=== PATIENT | male | born 1985 | race Hispanic/Latino ===

== ENCOUNTER 2018-09-21 09:20 | Emergency (ER) | payer SELFPAY ==
--- NOTE | 2018-09-21 10:22 | ER ---
Nurse's Notes [facility] Name: Yousif Gordon Age: 32 yrs Sex: Male : 1985 Arrival Date: 09/21/2018 Time: 09:23 Bed 15 Private MD: None, None Diagnosis: Acute upper respiratory infection, unspecified Presentation: 09/21 09:25 Presenting complaint: Patient states: cough, nasal congestion, back and chest pain, sv chills since Friday. Transition of care: patient was not received from another setting of care. Onset of symptoms was September 18, 2018. Risk Assessment: Do you want to hurt yourself or someone else? Patient reports no desire to harm self or others. Initial Sepsis Screen: Does the patient meet any 2 criteria? No. Patient's initial sepsis screen is negative. Does the patient have a suspected source of infection? No. Patient's initial sepsis screen is negative. Care prior to arrival: None. 09:25 Method Of Arrival: Ambulatory sv 09:25 Acuity: SURYA 4 sv Triage Assessment: :25 General: Appears in no apparent distress. uncomfortable, Behavior is calm, cooperative, sv appropriate for age. General: Reports chills for 1-2 days. Pain: Complains of pain in "body" Pain currently is 8 out of 10 on a pain scale. EENT: Reports nasal congestion. Neuro: Level of Consciousness is awake, alert, obeys commands, Oriented to person, place, time, situation, Moves all extremities. Full function Gait is steady. Respiratory: Reports cough that is pain with cough Respiratory effort is even, unlabored, Respiratory pattern is regular, symmetrical. Historical: - Allergies: 09:35 No Known Allergies; sv - Home Meds: 09:35 None [Active]; sv - PMHx: 09:35 None; sv - PSHx: 09:35 None; sv - Immunization history:: Adult Immunizations up to date, Hepatitis A vaccine is not up to date. - Social history:: Smoking status: Patient uses tobacco products, denies chronic smoking, but will smoke occasionally, Patient/guardian denies using alcohol. - Ebola Screening: : No symptoms or risks identified at this time. Screenin:30 Abuse screen: Denies threats or abuse. Denies injuries from another. Nutritional sg screening: No deficits noted. Tuberculosis screening: No symptoms or risk factors identified. Fall Risk None identified. Assessment: 09:36 General: Appears in no apparent distress. comfortable, slender, well groomed, well sg developed, well nourished, Behavior is calm, cooperative, appropriate for age. Pain: Complains of pain in sore throat and chest pain that is worsened by cough and deep breathing. Neuro: No deficits noted. Cardiovascular: Capillary refill is brisk in bilateral fingers Patient's skin is warm and dry. Respiratory: Airway is patent Respiratory effort is even, unlabored, Respiratory pattern is regular, symmetrical. GI: Abdomen is round non-distended. : No signs and/or symptoms were reported regarding the genitourinary system. EENT: No signs and/or symptoms were reported regarding the EENT system. Derm: Skin is pink, warm \\T\\ dry. Musculoskeletal: Reports body aches. Vital Signs: 09:35 BP 149 / 94; Pulse 80; Resp 18; Temp 98.6; Pulse Ox 96% ; Weight 72.57 kg; Height 5 ft. sv 9 in. (175.26 cm); Pain 8/10; 09:35 Body Mass Index 23.63 (72.57 kg, 175.26 cm) sv ED Course: 09:23 Patient arrived in ED. sb2 09:23 None, None is Private Physician. sb2 09:24 Anjana Mata FNP-C is [facility]. kb 09:24 Crescencio Griffin MD is Attending Physician. kb 09:32 Phani Dockery, RN is Primary Nurse. sg 09:34 Triage completed. sv 09:35 Arm band placed on Patient placed in an exam room. sv 09:39 No provider procedures requiring assistance completed. Flu and/or RSV swab sent to lab. sg Strep swab sent to lab. 09:40 Patient has correct armband on for positive identification. Bed in low position. Call sg light in reach. Side rails up X2. Pulse ox on. NIBP on. 10:25 Patient did not have IV access during this emergency room visit. intact, bleeding sg controlled, No redness/swelling at site. Pressure dressing applied. Administered Medications: No medications were administered Outcome: 10:21 Discharge ordered by . kb 10:25 Discharged to home ambulatory, with family. sg 10:25 Condition: good 10:25 Discharge instructions given to patient, Instructed on discharge instructions, follow up and referral plans. safety practices, Demonstrated understanding of instructions, follow-up care. 10:30 Patient left the ED. bd Signatures: Anjana Mata, HUNG-Annika RETAIL SHIFT LEADER-Ofelia Scott Stephanie, RN RN sv Phani Dockery RN RN sg Annabel Wilhelm sb2 Corrections: (The following items were deleted from the chart) 09/22 09:35 09/21 10:25 Discharge instructions given to patient, Instructed on discharge sg instructions, follow up and referral plans. safety practices, Demonstrated understanding of instructions, follow-up care, medications, Prescriptions given X 1, sg
--- NOTE | 2018-09-21 10:22 | EDPHYS ---
Physician Documentation [facility] Name: Yousif Gordon Age: 32 yrs Sex: Male : 1985 Arrival Date: 09/21/2018 Time: 09:23 Bed 15 Private MD: None, None ED Physician Crescencio Griffin HPI: 09/21 09:46 This 32 yrs old Male presents to ER via Ambulatory with complaints of Flu kb Symptoms. 09:46 The patient or guardian reports cough, that is intermittent, described as moderate, kb with no sputum, flu symptoms, low-grade fever, myalgias. Onset: The symptoms/episode began/occurred 3 day(s) ago. Severity of symptoms: At their worst the symptoms were moderate, in the emergency department the symptoms are unchanged. Modifying factors: The symptoms are alleviated by nothing, the symptoms are aggravated by nothing. Associated signs and symptoms: Pertinent positives: fever, rhinorrhea, sore throat, Pertinent negatives: chest pain, diarrhea, ear ache, nausea, vomiting. The patient has not experienced similar symptoms in the past. The patient has not recently seen a physician. Historical: - Allergies: 09:35 No Known Allergies; sv - Home Meds: 09:35 None [Active]; sv - PMHx: 09:35 None; sv - PSHx: 09:35 None; sv - Immunization history:: Adult Immunizations up to date, Hepatitis A vaccine is not up to date. - Social history:: Smoking status: Patient uses tobacco products, denies chronic smoking, but will smoke occasionally, Patient/guardian denies using alcohol. - Ebola Screening: : No symptoms or risks identified at this time. ROS: 09:46 Cardiovascular: Negative for chest pain, palpitations, and edema, Abdomen/GI: Negative kb for abdominal pain, nausea, vomiting, diarrhea, and constipation, Back: Negative for injury and pain, MS/Extremity: Negative for injury and deformity, Skin: Negative for injury, rash, and discoloration, Neuro: Negative for headache, weakness, numbness, tingling, and seizure. 09:46 Constitutional: Positive for body aches, chills, fever, Negative for fatigue, malaise, poor PO intake, weight loss. 09:46 ENT: Positive for rhinorrhea, sinus congestion, sore throat. 09:46 Respiratory: Positive for cough, Negative for dyspnea on exertion, hemoptysis, orthopnea, pleurisy, shortness of breath, sputum production, wheezing. Exam: 09:47 Constitutional: This is a well developed, well nourished patient who is awake, alert, kb and in no acute distress. Head/Face: Normocephalic, atraumatic. Chest/axilla: Normal chest wall appearance and motion. Nontender with no deformity. No lesions are appreciated. Cardiovascular: Regular rate and rhythm with a normal S1 and S2. No gallops, murmurs, or rubs. Normal PMI, no JVD. No pulse deficits. Respiratory: Lungs have equal breath sounds bilaterally, clear to auscultation and percussion. No rales, rhonchi or wheezes noted. No increased work of breathing, no retractions or nasal flaring. Abdomen/GI: Soft, non-tender, with normal bowel sounds. No distension or tympany. No guarding or rebound. No evidence of tenderness throughout. Skin: Warm, dry with normal turgor. Normal color with no rashes, no lesions, and no evidence of cellulitis. MS/ Extremity: Pulses equal, no cyanosis. Neurovascular intact. Full, normal range of motion. Neuro: Awake and alert, GCS 15, oriented to person, place, time, and situation. Cranial nerves II-XII grossly intact. Motor strength 5/5 in all extremities. Sensory grossly intact. Cerebellar exam normal. Normal gait. 09:47 ENT: External ear(s): are unremarkable, Ear canal(s): are normal, TM's: are normal, Nose: is normal, Posterior pharynx: Airway: normal, no evidence of obstruction, Tonsils: with erythema, Uvula: normal, midline, erythema, that is mild. Vital Signs: 09:35 BP 149 / 94; Pulse 80; Resp 18; Temp 98.6; Pulse Ox 96% ; Weight 72.57 kg; Height 5 ft. sv 9 in. (175.26 cm); Pain 8/10; 09:35 Body Mass Index 23.63 (72.57 kg, 175.26 cm) sv MDM: 09:25 Patient medically screened. kb 09:47 Data reviewed: vital signs, nurses notes. Data interpreted: Pulse oximetry: on room air kb is 98 %. Interpretation: normal. 10:16 Counseling: I had a detailed discussion with the patient and/or guardian regarding: the kb historical points, exam findings, and any diagnostic results supporting the discharge/admit diagnosis, lab results, the need for outpatient follow up, a family practitioner, to return to the emergency department if symptoms worsen or persist or if there are any questions or concerns that arise at home. 09/21 09:29 Order name: Flu; Complete Time: 10:07 kb 09/21 09:29 Order name: Strep; Complete Time: 10:05 kb 09/21 10:07 Order name: Throat Culture EDMS Administered Medications: No medications were administered Disposition: 18:51 Co-signature as Attending Physician, Crescencio Griffin MD available for consultation at ps1 all times. . Disposition: 09/21/18 10:21 Discharged to Home. Impression: Acute upper respiratory infection, unspecified. - Condition is Stable. - Discharge Instructions: Upper Respiratory Infection, Adult, [id number]. - Work release form, Medication Reconciliation Form, Thank You Letter, Antibiotic Education, Prescription Opioid Use form. - Follow up: Emergency Department; When: As needed; Reason: Worsening of condition. Follow up: Private Physician; When: 2 - 3 days; Reason: Recheck today's complaints, Continuance of care, Re-evaluation by your physician. Signatures: Dispatcher [employer] Anjana Pedersen, KIARA PERSAUD-Ofelia Scott Stephanie, RN RN sv Singer, Phillip, MD MD ps1 Corrections: (The following items were deleted from the chart) 10:30 10:21 09/21/2018 10:21 Discharged to Home. Impression: Acute upper respiratory bd infection, unspecified. Condition is Stable. Forms are Medication Reconciliation Form, Thank You Letter, Antibiotic Education, Prescription Opioid Use. Follow up: Emergency Department; When: As needed; Reason: Worsening of condition. Follow up: Private Physician; When: 2 - 3 days; Reason: Recheck today's complaints, Continuance of care, Re-evaluation by your physician. kb
== END 2018-09-21 10:30 | disposition home or self-care (01) ==
LOC: ER 09:20
DX: J06.9 Acute upper respiratory infection, unspecified (principal); Z72.0 Tobacco use
CPT/HCPCS: 87070; 87081; 87804; 99283

== ENCOUNTER 2024-05-19 19:45 | Emergency (ER) | payer SELFPAY ==
--- OUTSIDE RECORDS SUMMARY | 2024-05-19 19:48 | XMS REPORT | Continuity of Care Document ---
Author Name Unknown Address [address] [facility] [address] [id number] [facility]connect Address [address] [facility]. [address] [place] [address] Care Team Providers Care Plant Technician Name Role Phone Unavailable Unavailable Unavailable Encounters Start Date/Time End Date/Time Encounter Type Admission Type Attending [facility] Care Facility Care Department Encounter ID Source 2023-06-04 08:33:41 2023-06-04 08:33:41 Outpatient SFA S[facility] [id number] Tigre Humberto Arik 2023-02-26 08:08:47 2023-02-26 08:08:47 Outpatient SFA SFA [id number] Tigre Humberto Arik 2023-01-08 08:40:47 2023-01-08 08:40:47 Outpatient SFA SFA [id number] Tigre Elise 2022-12-04 09:21:35 2022-12-04 09:21:35 Outpatient SFA SFA [id number] Tigre Elise 2022-11-12 15:57:37 2022-11-12 15:57:37 Outpatient SFA SFA [id number] Tigre Elise
--- NOTE | 2024-05-19 20:29 | ER ---
Nurse's Notes [facility] Name: Yousif Gordon Age: 38 yrs Sex: Male : 1985 Arrival Date: 05/19/2024 Time: 19:45 Bed IW4 Private MD: Diagnosis: Acute pansinusitis Presentation: 05/19 20:26 Chief complaint: Patient states: Pt c/o headache and nasal drainage x 6 weeks. No tl4 relief with OTC meds. Coronavirus screen: headache, runny nose. Ebola Screen: No symptoms or risks identified at this time. Initial Sepsis Screen: Does the patient meet any 2 criteria? No. Patient's initial sepsis screen is negative. Does the patient have a suspected source of infection? No. Patient's initial sepsis screen is negative. Risk Assessment: Do you want to hurt yourself or someone else? Patient reports no desire to harm self or others. Onset of symptoms was April 10, 2024. 20:26 Method Of Arrival: Ambulatory tl4 20:26 Acuity: SURYA 4 tl4 Triage Assessment: 20:28 Headache History: The patient has had previous headaches and this one is similar to tl4 previous episodes. General: Appears uncomfortable, Behavior is calm, cooperative. Pain: Complains of pain in face and scalp Pain currently is 3 out of 10 on a pain scale. Pain began gradually, 6 weeks ago. Pain: Also complains of no other associated symptoms. EENT: Reports nasal congestion. Neuro: Level of Consciousness is awake, alert, obeys commands, Oriented to person, place, time, situation, Moves all extremities. Full function Gait is steady, Speech is normal, Reports headache. Cardiovascular: Capillary refill < 3 seconds Patient's skin is warm and dry. Respiratory: Airway is patent Respiratory effort is even, unlabored, Respiratory pattern is regular, symmetrical. GI: No signs and/or symptoms were reported involving the gastrointestinal system. : No signs and/or symptoms were reported regarding the genitourinary system. Derm: No signs and/or symptoms reported regarding the dermatologic system. Musculoskeletal: No signs and/or symptoms reported regarding the musculoskeletal system. Historical: - Allergies: 20:28 No Known Allergies; tl4 - Home Meds: 20:28 None [Active]; tl4 - PMHx: 20:28 None; tl4 - PSHx: 20:28 None; tl4 - Immunization history:: Adult Immunizations unknown. - Infectious Disease History:: Denies. - Social history:: Smoking status: Reported history of juuling and/or vaping. - Family history:: not pertinent. Screenin:58 [facility] ED Fall Risk Assessment (Adult) History of falling in the last 3 months, bm8 including since admission No falls in past 3 months (0 pts) Confusion or Disorientation No (0 pts) Intoxicated or Sedated No (0 pts) Impaired Gait No (0 pts) Mobility Assist Device Used No (0 pt) Altered Elimination No (0 pt) Score/Fall Risk Level 0 - 2 = Low Risk Oriented to surroundings, Maintained a safe environment, Educated pt \T\ family on fall prevention, incl call for assistance when getting out of bed, Hourly rounding (assess needs \T\ fall precautionary measures) done. Abuse screen: Denies threats or abuse. Nutritional screening: No deficits noted. Tuberculosis screening: No symptoms or risk factors identified. Assessment: 20:58 General: Appears in no apparent distress. comfortable, Behavior is calm, cooperative, bm8 appropriate for age. Pain: Complains of pain in face. Neuro: No deficits noted. Level of Consciousness is awake, alert, obeys commands, Oriented to person, place, time, situation. Cardiovascular: No deficits noted. Capillary refill < 3 seconds Patient's skin is warm and dry. Respiratory: Airway is patent Respiratory effort is even, unlabored, Respiratory pattern is regular, symmetrical. EENT: Nares with drainage noted bilaterally. Vital Signs: 20:26 BP 134 / 76; Pulse 86; Resp 16; Temp 97.2(TE); Pulse Ox 97% on R/A; Weight 71.67 kg; tl4 Height 5 ft. 9 in. ; Pain 3/10; 20:58 BP 128 / 70; Pulse 81; Resp 17; Temp 97.2; Pulse Ox 97% ; Pain 3/10; bm8 20:26 Body Mass Index 23.33 (71.67 kg, 175.26 cm) tl4 20:26 Pain Scale: Adult tl4 20:58 Pain Scale: Adult bm8 Kelly Coma Score: 20:42 Eye Response: spontaneous(4). Motor Response: obeys commands(6). Verbal Response: sp4 oriented(5). Total: 15. 20:58 Eye Response: spontaneous(4). Motor Response: obeys commands(6). Verbal Response: bm8 oriented(5). Total: 15. ED Course: 20:01 Patient arrived in ED. gm2 20:17 Ernie Luke MD is Attending Physician. sp4 20:28 Triage completed. tl4 20:28 Immanuel Rodriguez DO is Referral Physician. sp4 20:29 Arm band placed on right wrist. tl4 20:57 William Rincon, RN is Primary Nurse. bm8 20:58 Patient has correct armband on for positive identification. Provided Education on: post bm8 er care. Client placed on continuous cardiac and pulse oximetry monitoring. NIBP monitoring applied. Pulse ox on. NIBP on. Verbal reassurance given. 20:58 No provider procedures requiring assistance completed. Patient did not have IV access bm8 during this emergency room visit. Administered Medications: 20:57 Drug: Rocephin (cefTRIAXone) IM 1 grams IM once Route: IM; Site: right gluteus; bm8 21:01 Follow up: Response: No adverse reaction bm8 Medication: 20:58 VIS not applicable for this client. bm8 Outcome: 20:29 Discharge ordered by . sp4 20:58 Discharged to home ambulatory, bm8 20:58 Condition: stable 20:58 Discharge instructions given to patient, Instructed on discharge instructions, follow up and referral plans. no drinking with medication, no driving heavy equipment, medication usage, safety practices, Demonstrated understanding of instructions, follow-up care, medications, Prescriptions given X 1, 21:02 Patient left the ED. bm8 Signatures: Ernie Luke MD MD sp4 Amelie Graham 2 Mohit Wilcox RN RN tl4 William Rincon, RN RN bm8
--- NOTE | 2024-05-19 20:29 | EDPHYS ---
Physician Documentation [facility] Name: Yousif Gordon Age: 38 yrs Sex: Male : 1985 Arrival Date: 05/19/2024 Time: 19:45 Bed IW4 Private MD: ED Physician Ernie Luke HPI: 05/19 20:17 This 38 yrs old Male presents to ER via Unassigned with complaints of Nasal sp4 Drainage, Headache. 20:42 This is 38-year-old male presents with over 1 month of nasal drainage congestion and sp4 yellow purulent nasal drainage. Historical: - Allergies: 20:28 No Known Allergies; tl4 - Home Meds: 20:28 None [Active]; tl4 - PMHx: 20:28 None; tl4 - PSHx: 20:28 None; tl4 - Immunization history:: Adult Immunizations unknown. - Infectious Disease History:: Denies. - Social history:: Smoking status: Reported history of juuling and/or vaping. - Family history:: not pertinent. ROS: 20:42 Constitutional: Negative for fever, chills, and weight loss, positive congestion and sp4 nasal drainage positive sinus pressure 20:42 All other systems are negative, Exam: 20:42 Constitutional: This is a well developed, well nourished patient who is awake, alert, sp4 and in no acute distress. Head/Face: Normocephalic, atraumatic. Eyes: Pupils equal round and reactive to light, extra-ocular motions intact. Lids and lashes normal. Conjunctiva and sclera are not injected. Cornea within normal limits. Periorbital areas with no swelling, redness, or edema. ENT: Nares patent. No nasal discharge, no septal abnormalities noted. Tympanic membranes are normal and external auditory canals are clear. Oropharynx with no redness, swelling, or masses, exudates, or evidence of obstruction, uvula midline. Mucous membranes moist. Neck: Trachea midline, no thyromegaly or masses palpated, and no cervical lymphadenopathy. Supple, full range of motion without nuchal rigidity, or vertebral point tenderness. Chest/axilla: Normal chest wall appearance and motion. Nontender with no deformity. No lesions are appreciated. Cardiovascular: Regular rate and rhythm with a normal S1 and S2. No gallops, murmurs, or rubs. Normal PMI, no JVD. No pulse deficits. Respiratory: Lungs have equal breath sounds bilaterally, clear to auscultation and percussion. No rales, rhonchi or wheezes noted. No increased work of breathing, no retractions or nasal flaring. Abdomen/GI: Soft, with normal bowel sounds. No distension or tympany. No guarding or rebound. No evidence of tenderness throughout. Back: No spinal tenderness. No costovertebral tenderness. Skin: Warm, dry with normal turgor. Normal color with no rashes, no lesions, and no evidence of cellulitis. MS/ Extremity: Pulses equal, no cyanosis. Neurovascular intact. Full, normal range of motion. Neuro: Awake and alert, GCS 15, oriented to person, place, time, and situation. Cranial nerves II-XII grossly intact. Motor strength 5/5 in all extremities. Sensory grossly intact. Psych: Awake, alert, with orientation to person, place and time. Behavior, mood, and affect are within normal limits Vital Signs: 20:26 BP 134 / 76; Pulse 86; Resp 16; Temp 97.2(TE); Pulse Ox 97% on R/A; Weight 71.67 kg; tl4 Height 5 ft. 9 in. ; Pain 3/10; 20:58 BP 128 / 70; Pulse 81; Resp 17; Temp 97.2; Pulse Ox 97% ; Pain 3/10; bm8 20:26 Body Mass Index 23.33 (71.67 kg, 175.26 cm) tl4 20:26 Pain Scale: Adult tl4 20:58 Pain Scale: Adult bm8 Kelly Coma Score: 20:42 Eye Response: spontaneous(4). Motor Response: obeys commands(6). Verbal Response: sp4 oriented(5). Total: 15. 20:58 Eye Response: spontaneous(4). Motor Response: obeys commands(6). Verbal Response: bm8 oriented(5). Total: 15. MDM: 20:19 Patient medically screened. sp4 20:42 Differential Diagnosis: Bronchitis Influenza Upper Respiratory Infection Sinusitis sp4 Pharyngitis. Data reviewed: vital signs, nurses notes. ED course: Patient will be provided a 10-day course of cephalexin for acute bacterial sinusitis associated with purulent rhinitis.. Administered Medications: 20:57 Drug: Rocephin (cefTRIAXone) IM 1 grams IM once Route: IM; Site: right gluteus; bm8 21:01 Follow up: Response: No adverse reaction bm8 Disposition Summary: 05/19/24 20:29 Discharge Ordered Notes: Location: Home sp4 Problem: new sp4 Symptoms: have improved sp4 Condition: Stable sp4 Diagnosis - Acute pansinusitis sp4 Followup: sp4 - With: Immanuel Rodriguez DO - When: 7 - 10 days - Reason: Recheck today's complaints Discharge Instructions: - Discharge Summary Sheet sp4 - Sinusitis, Adult, [id number] sp4 Forms: - Patient Portal Instructions sp4 Prescriptions: - Cephalexin 500 mg Oral Capsule - take 1 capsule ORAL route every 12 hours for 10 days; 20 capsule; Refills: 0, sp4 Product Selection Permitted Signatures: Dispatcher [employer] Ernie Pollock MD MD sp4 Mohit Wilcox RN RN tl4 William Rincon RN RN bm8
[2024-05-19] MEDS ORDERED: LIDOCAINE 1% MPF 2 ML AMPULE ONE (20:51)
[2024-05-19] MEDS ORDERED: CEFTRIAXONE 1000 MG/VIAL ONE (20:51)
[2024-05-20 02:29] VITALS: BP 128/70; TEMP 97.2; O2SAT 97
== END 2024-05-19 21:02 | disposition home or self-care (01) ==
LOC: ER 19:45
DX: J01.40 Acute pansinusitis, unspecified (principal)
CPT/HCPCS: 96372; 99284; J0696

== ENCOUNTER 2024-10-31 09:50 | Emergency (ER) | payer OTHER, SELFPAY ==
--- OUTSIDE RECORDS SUMMARY | 2024-10-31 09:53 | XMS REPORT | Continuity of Care Document ---
Author Name Unknown Address [address] [place] [address] [facility]. [address] [id number] [facility] Address [address] [facility]. [address] [place] [address] Care Team Providers Care Pan Puller Name Role Phone TAMERA DALEY Attending Clinician STEF Camacho Attending Clinician Maciej flores Payers Payer Name Policy Type Policy Number Effective Date Expirati on Date Source [facility] FOCUS 9 [id number] 2024 00:00:00 Encounters Start Date/Time End Date/Time Encounter Type Admission Type Attending Clinicians Care Facility Care Department Encounter ID Source 2024-07-14 15:30:00 2024-07-14 15:30:00 Outpatient TAMERA DALEY [id number] Lorie Rivas 2024-07-14 09:30:00 2024-07-14 09:30:00 Outpatient TAMERA DALEY [id number] Lorie Rivas 2024-07-14 09:30:00 2024-07-14 09:30:00 Outpatient TAMERA DALEY [id number] Lorie Rivas 2024-06-30 11:15:00 2024-06-30 11:15:00 Outpatient STEF BALDERAS [id number] Lorie Rivas 2023-06-04 08:33:41 2023-06-04 08:33:41 Outpatient SFA SFA [id number] 0726 Tigre Humberto Arik 2023-02-26 08:08:47 2023-02-26 08:08:47 Outpatient SFA SFA [id number] [id number] Tigre Elise 2023-01-08 08:40:47 2023-01-08 08:40:47 Outpatient SFA SFA [id number] Tigre Elise 2022-12-04 09:21:35 2022-12-04 09:21:35 Outpatient SFA SFA [id number] Tigre Elise 2022-11-12 15:57:37 2022-11-12 15:57:37 Outpatient SFA SFA 3 Tigre Elise
[2024-10-31] MEDS ORDERED: IBUPROFEN 200 MG TAB PO ONE (10:09)
--- NOTE | 2024-10-31 11:12 | EDPHYS ---
Physician Documentation [facility] Name: Yousif Gordon Age: 38 yrs Sex: Male : 1985 Arrival Date: 10/31/2024 Time: 09:50 Bed 17 Private MD: ED Physician Rojelio Whitaker HPI: 10/31 10:13 This 38 yrs old Male presents to ER via Ambulatory with complaints of Anxiety. sb4 10:13 38 year old male with history of bipolar, depression, and anxiety presents with mild sb4 chest pain secondary to anxiety. he states that he stopped taking his psych meds about 8 months ago and he has not been sleeping well so his anxiety/chest pains have recurred. he told his boss at work today to see if he could leave early and his boss made him come to the ED to be evaluated. patient states the pain is mild, does not radiate, is not associated with any dizziness, sob, nausea. Historical: - Allergies: 10:05 No Known Allergies; iw - Home Meds: 10:05 None [Active]; iw - PMHx: 10:05 Anxiety; iw - PSHx: 10:05 None; iw - Immunization history:: Adult Immunizations not up to date. - Infectious Disease History:: Denies. - Social history:: Smoking status: Reported history of juuling and/or vaping. ROS: 10:16 Constitutional: Negative for fever, chills, and weight loss, sb4 10:16 Psych: Positive for anxiety, 10:16 All other systems are negative, Exam: 10:16 Head/Face: Normocephalic, atraumatic. Eyes: Extra-ocular motions intact. Periorbital sb4 areas with no swelling, redness, or edema. ENT: Mucous membranes moist. Cardiovascular: Regular rate and rhythm with a normal S1 and S2. Respiratory: No increased work of breathing, no retractions or nasal flaring. Abdomen/GI: Soft, non-tender, no distension. Skin: Warm, dry with normal turgor. Normal color with no rashes, no lesions, and no evidence of cellulitis. 10:16 Constitutional: The patient appears in no acute distress, alert, awake, anxious, 10:16 Psych: Behavior/mood is pleasant, cooperative, anxious, Affect is calm, Oriented to person, place, time, Patient has no thoughts/intents to harm self or others. Judgement / Insight is normal. Memory is normal. Delusions/hallucinations are not present. Vital Signs: 10:03 BP 150 / 95; Pulse 75; Resp 16; Temp 97.4; Pulse Ox 99% on R/A; Weight 71.21 kg; Height iw 5 ft. 9 in. ; Pain 4/10; 10:03 Body Mass Index 23.18 (71.21 kg, 175.26 cm) iw 10:03 Pain Scale: Adult iw MDM: 10:06 Medical Screening Exam initiated sb4 10:20 Data reviewed: vital signs, nurses notes, and as a result, I will discharge patient. sb4 Test considered but Not performed: Labs: troponin. Other Details EKG. Administered Medications: 10:16 Drug: Ibuprofen PO 600 mg PO once Route: PO; ap3 11:13 Follow up: Response: No adverse reaction bp Disposition Summary: 10/31/24 11:11 Discharge Ordered Notes: Location: Home sb4 Problem: an acute exacerbation sb4 Symptoms: have improved sb4 Condition: Stable sb4 Diagnosis - Anxiety disorder, unspecified sb4 Followup: sb4 - With: Evaristo Rowley MD - When: 2 - 3 days - Reason: Recheck today's complaints, Continuance of care, Re-evaluation by your physician Discharge Instructions: - Discharge Summary Sheet sb4 - Managing Anxiety, Adult sb4 Forms: - Work release form ap3 - Patient Portal Instructions sb4 - Leadership Thank You Letter sb4 Addendum: 11/04/2024 12:45 Co-signature as Attending Physician, Rojelio Whitaker MD I agree with the assessment and c santos plan of care. Signatures: Rojelio Whitaker MD MD cha Williams, Irene, RN RN iw Rosita Love RN RN ap3 Rhiannon Naylor PA-C PAHarmony sb4 Milan Ward RN bp
--- NOTE | 2024-10-31 11:12 | ER ---
Nurse's Notes [facility] Name: Yousif Gordon Age: 38 yrs Sex: Male : 1985 Arrival Date: 10/31/2024 Time: 09:50 Bed 17 Private MD: Diagnosis: Anxiety disorder, unspecified Presentation: 10/31 10:03 Chief complaint: Patient states: was having small tight chest pains from anxiety, iw usually if I take tylenol or ibuprofen I fell better, I told them at work and they called the safety event so I'm here. Coronavirus screen: At this time, the client does not indicate any symptoms associated with coronavirus-19. Ebola Screen: No symptoms or risks identified at this time. Initial Sepsis Screen: Does the patient meet any 2 criteria? No. Patient's initial sepsis screen is negative. Does the patient have a suspected source of infection? No. Patient's initial sepsis screen is negative. Risk Assessment: Do you want to hurt yourself or someone else? Patient reports no desire to harm self or others. Onset of symptoms was October 31, 2024. 10:03 Method Of Arrival: Ambulatory iw 10:03 Acuity: SURYA 3 iw Triage Assessment: 10:05 General: Appears in no apparent distress. Behavior is cooperative, appropriate for age, bp anxious. Pain: Complains of pain in chest. EENT: No deficits noted. Neuro: No deficits noted. Cardiovascular: No deficits noted. Respiratory: No deficits noted. GI: No signs and/or symptoms were reported involving the gastrointestinal system. : No signs and/or symptoms were reported regarding the genitourinary system. Derm: No deficits noted. Musculoskeletal: No deficits noted. Historical: - Allergies: 10:05 No Known Allergies; iw - Home Meds: 10:05 None [Active]; iw - PMHx: 10:05 Anxiety; iw - PSHx: 10:05 None; iw - Immunization history:: Adult Immunizations not up to date. - Infectious Disease History:: Denies. - Social history:: Smoking status: Reported history of juuling and/or vaping. Screenin:12 [facility] ED Fall Risk Assessment (Adult) History of falling in the last 3 months, bp including since admission No falls in past 3 months (0 pts) Confusion or Disorientation No (0 pts) Intoxicated or Sedated No (0 pts) Impaired Gait No (0 pts) Mobility Assist Device Used No (0 pt) Altered Elimination No (0 pt) Score/Fall Risk Level 0 - 2 = Low Risk Oriented to surroundings. Abuse screen: Denies threats or abuse. Denies injuries from another. Nutritional screening: No deficits noted. Tuberculosis screening: No symptoms or risk factors identified. Assessment: 10:05 General: Appears in no apparent distress. Behavior is cooperative, appropriate for age, bp anxious. Pain: Complains of pain in chest. 11:12 Reassessment: Patient appears in no apparent distress at this time. Patient is alert, bp oriented x 3, equal unlabored respirations, skin warm/dry/pink. Patient states symptoms have improved. Vital Signs: 10:03 BP 150 / 95; Pulse 75; Resp 16; Temp 97.4; Pulse Ox 99% on R/A; Weight 71.21 kg; Height iw 5 ft. 9 in. ; Pain 4/10; 10:03 Body Mass Index 23.18 (71.21 kg, 175.26 cm) iw 10:03 Pain Scale: Adult iw ED Course: 09:56 Patient arrived in ED. ra3 09:57 Rhiannon Naylor PA-C is PHCP. sb4 09:57 Rojelio Whitaker MD is Attending Physician. sb4 10:05 Triage completed. iw 10:06 Milan Ward, CHEY is Primary Nurse. bp 10:06 Arm band placed on. iw 11:11 Evaristo Rowley MD is Referral Physician. sb4 11:12 Patient has correct armband on for positive identification. bp 11:12 No provider procedures requiring assistance completed. Patient did not have IV access bp during this emergency room visit. Administered Medications: 10:16 Drug: Ibuprofen PO 600 mg PO once Route: PO; ap3 11:13 Follow up: Response: No adverse reaction bp Medication: 11:12 VIS not applicable for this client. bp Outcome: 11:11 Discharge ordered by . sb4 11:17 Discharged to home ambulatory, ap3 11:17 Condition: good 11:17 Discharge instructions given to patient, Instructed on discharge instructions, follow up and referral plans. Demonstrated understanding of instructions, follow-up care, Prescriptions given X 11:17 Patient left the ED. ap3 Signatures: Jaquan, Karen, Milan Mccartney RN, RN RN Rosita Galvan RN RN ap3 Rhiannon Naylor, RICKY PAHarmony [id number] Meggan Fish ra3 Corrections: (The following items were deleted from the chart) 10:06 10:03 BP 150 / 95; Pulse 75bpm; Resp 16bpm; Pulse Ox 99% RA; Temp 97.4F; iw iw 10:06 10:03 BP 150 / 95; Pulse 75bpm; Resp 16bpm; Pulse Ox 99% RA; Temp 97.4F; 71.21 kg; iw Height 5 ft. 9 in.; BMI: 23.1; iw
[2024-10-31 11:22] VITALS: BP 150/95; TEMP 97.4; O2SAT 99
== END 2024-10-31 11:17 | disposition home or self-care (01) ==
LOC: ER 09:50
DX: F41.9 Anxiety disorder, unspecified (principal)
CPT/HCPCS: 99283

== ENCOUNTER 2024-12-25 22:51 | Emergency (ER) | payer OTHER ==
--- OUTSIDE RECORDS SUMMARY | 2024-12-25 22:54 | XMS REPORT | Continuity of Care Document ---
Author Name Unknown Address [address] [facility] [address] [id number] [facility] thconnect Address [address] [facility] [address] [place] [address] Care Team Providers Care Sound Engineering Technician Name Role Phone Niya Lomax Primary Care Physician [phone] CHIRAG MARTINEZ Attending Clinician TAMERA Holloway Attending Clinician STEF Camacho Attending Clinician Unaliam ilable Payers Payer Name Policy Type Policy Number Effective Date Expirati on Date Source [facility] [employer] 9 [id number] 2024 00:00:00 Medications Ordered Medication Name Filled Medication Name Start Date Stop Date Current Medication? Ordering Clinician Indication Dosage Frequency Signature (SIG) Comments Components Source TAKE 1 TABLET AT BEDTIME. 06-04 00:00: 00 10-29 00:00 :00 No 50 Tigrejordana Elise TAKE 1 TABLET DAILY. 06-04 00:00: 00 10-29 00:00 :00 No 10 Tigre F Arik TAKE 1 TABLET DAILY. 04-09 00:00: 00 10-29 00:00 :00 No 10 Tigre F Arik TAKE 1 TABLET AT BEDTIME. 04-09 00:00: 00 10-29 00:00 :00 No 50 Tigre F Arik TAKE 1 TABLET DAILY. 04-02 00:00: 00 10-29 00:00 :00 No 10 Tigre F Arik TAKE 1 TABLET AT BEDTIME. 04-02 00:00: 00 10-29 00:00 :00 No 50 Tigre F Arik TAKE 1 TABLET AT BEDTIME. 0 4-19 00:00: 00 10-29 00:00 :00 No 50 Tigre F Arik TAKE 1 TABLET DAILY. 4-19 00:00: 00 10-29 00:00 :00 No 10 Tigre F Arik TAKE 1 TABLET DAILY. 4-04 00:00: 00 10-29 00:00 :00 No 10 Tigre F Arik TAKE 1 TABLET DAILY. 3-01 00:00: 00 10-29 00:00 :00 No 10 Tigre F Arik TAKE 1 TABLET AT BEDTIME. 3- 00:00: 00 10-29 00:00 :00 No 50 Tigre F Arik TAKE 1 TABLET AT BEDTIME. 1-25 00:00: 00 10-29 00:00 :00 No 50 Tigre F Arik TAKE 1 TABLET DAILY. 1-25 00:00: 00 10-29 00:00 :00 No 10 Tigre F Arik TAKE 1 TABLET DAILY. 1-17 00:00: 00 10-29 00:00 :00 No 10 Tigre F Arik TAKE 1 TABLET AT BEDTIME. 1-17 00:00: 00 10-29 00:00 :00 No 50 Tigre F Arik TAKE 1 TABLET AT BEDTIME. 1-03 00:00: 00 10-29 00:00 :00 No 50 Tigre F Arik TAKE 1 TABLET DAILY. 1-03 00:00: 00 10-29 00:00 :00 No 10 Tigre F Arik Dose Unknown 05-08 00:00: 00 Yes Tigre F Arik Seroquel 50 mg tablet 05-08 00:00: 00 Yes 15mg Tigre F Arik Paxil 10 mg tablet 03-02 00:00: 00 Yes 1mg Tigre F Arik Seroquel 25 mg tablet 03-02 00:00: 00 Yes 1mg Tigre F Arik Seroquel 50 mg tablet 03-02 00:00: 00 Yes 1mg Tigre F Arik Paxil 10 mg tablet 01-02 00:00: 00 Yes 1mg Tigre F Arik Seroquel 50 mg tablet 01-02 00:00: 00 Yes 1mg Tigre F Arik Paxil 10 mg tablet 12-01 00:00: 00 Yes 1mg Tigre F Arik Seroquel 50 mg tablet 12-01 00:00: 00 Yes 1mg Tigre F Arik Vital Signs Vital Name Observation Time Observation Value Comments S ource Weight Measured 2024-11-01 10:13:00 165.40 pounds Tigre F Arik Height Measured 2024-11-01 10:13:00 69.00 inches Tigre F Arik Body Temperature 2024-11-01 10:13:00 98.10 degrees Tigre F Arik Heart Rate 2024-11-01 10:13:00 95.00 /min Jennifer en F Arik Respiratory Rate 2024-11-01 10:13:00 18.00 /min Tigre F Arik BP Systolic 2024-11-01 10:13:00 122 mm[Hg] Step hen F Arik BP Diastolic 2024-11-01 10:13:00 76 mm[Hg] Humza phen F Arik BP Systolic 2023-01-08 08:41:00 117 mm[Hg] Step hen F Arik BP Diastolic 2023-01-08 08:41:00 70 mm[Hg] Humza phen F Arik Weight Measured 2023-01-08 08:41:00 153.40 pounds Tigre F Arik Height Measured 2023-01-08 08:41:00 69.00 inches Tigre F Arik Body Temperature 2023-01-08 08:41:00 97.30 degrees Tigre F Arik Heart Rate 2023-01-08 08:41:00 63.00 /min Jennifer en F Arik Respiratory Rate 2023-01-08 08:41:00 18.00 /min Tigre F Arik BP Systolic 2022-12-04 09:48:00 134 mm[Hg] Step hen F Arik BP Diastolic 2022-12-04 09:48:00 79 mm[Hg] Humza phen F Raik Weight Measured 2022-12-04 09:48:00 150.40 pounds Tigre F Arik Height Measured 2022-12-04 09:48:00 69.00 inches Tigre F Arik Body Temperature 2022-12-04 09:48:00 98.30 degrees Tigre F Arik Heart Rate 2022-12-04 09:48:00 78.00 /min Jennifer en F Arik Respiratory Rate 2022-12-04 09:48:00 20.00 /min Tigre F Arik BP Systolic 2018-05-08 10:39:00 133 mm[Hg] Step hen F Arik BP Diastolic 2018-05-08 10:39:00 70 mm[Hg] Humza phen F Arik Weight Measured 2018-05-08 10:39:00 155.00 pounds Tigre F Arik Height Measured 2018-05-08 10:39:00 69.00 inches Tigre F Arik Body Temperature 2018-05-08 10:39:00 98.50 degrees Tigre F Arik Heart Rate 2018-05-08 10:39:00 70.00 /min Jennifer en F Arik Respiratory Rate 2018-05-08 10:39:00 18.00 /min Tigre F Arik BP Systolic 2018-03-02 12:48:00 122 mm[Hg] Step hen F Arik BP Diastolic 2018-03-02 12:48:00 76 mm[Hg] Humza phen F Arik Weight Measured 2018-03-02 12:48:00 150.00 pounds Tigre F Arik Height Measured 2018-03-02 12:48:00 69.00 inches Tigre F Arik Body Temperature 2018-03-02 12:48:00 98.00 degrees Tigre F Arik Heart Rate 2018-03-02 12:48:00 70.00 /min Jennifer en F Arik Respiratory Rate 2018-03-02 12:48:00 18.00 /min Tigre F Arik BP Systolic 2018-01-02 08:50:00 113 mm[Hg] Step hen F Arik BP Diastolic 2018-01-02 08:50:00 64 mm[Hg] Humza phen F Arik Weight Measured 2018-01-02 08:50:00 Tigre F Arik Height Measured 2018-01-02 08:50:00 69.00 inches Tigre F Arik Body Temperature 2018-01-02 08:50:00 98.00 degrees Tigre F Arik Heart Rate 2018-01-02 08:50:00 73.00 /min Jennifer en F Arik Respiratory Rate 2018-01-02 08:50:00 20.00 /min Tigre F Arik BP Systolic 2017-12-08 14:48:00 135 mm[Hg] Step hen F Arik BP Diastolic 2017-12-08 14:48:00 83 mm[Hg] Humza phen F Arik Weight Measured 2017-12-08 14:48:00 150.00 pounds Tigre F Arik Height Measured 2017-12-08 14:48:00 69.00 inches Tigre F Arik Body Temperature 2017-12-08 14:48:00 Tigre F Arik Heart Rate 2017-12-08 14:48:00 99.00 /min Jennifer en F Arik Respiratory Rate 2017-12-08 14:48:00 18.00 /min Tigre F Arik BP Systolic 2017-12-01 14:29:00 129 mm[Hg] Step hen F Arik BP Diastolic 2017-12-01 14:29:00 64 mm[Hg] Humza phen F Arik Weight Measured 2017-12-01 14:29:00 150.00 pounds Tigre F Arik Height Measured 2017-12-01 14:29:00 69.00 inches Tigre F Arik Body Temperature 2017-12-01 14:29:00 97.90 degrees Tigre F Arik Heart Rate 2017-12-01 14:29:00 70.00 /min Jennifer en F Arik Respiratory Rate 2017-12-01 14:29:00 18.00 /min Tigre F Arik Encounters Start Date/Time End Date/Time Encounter Type Admission Type Attending [facility] Care Department Encounter ID Source 2024-11-04 09:00:00 2024-11-04 09:00:00 Outpatient CHIRAG MARTINEZ [id number] Aysha Rivas 2024-11-01 10:10:22 2024-11-01 10:10:22 Outpatient [facility] [id number] Tigre F Arik 2024-11-01 00:00:00 2024-11-01 00:00:00 Outpatient Visit [facility] [id number] Tigre F Arik 2024-07-14 15:30:00 2024-07-14 15:30:00 Outpatient TAMERA DALEY [id number] Aysha Rivas 2024-07-14 09:30:00 2024-07-14 09:30:00 Outpatient TAMERA DALEY [id number] Aysha Rivas 2024-07-14 09:30:00 2024-07-14 09:30:00 Outpatient TAMERA DALEY [id number] Aysha Rivas 2024-06-30 11:15:00 2024-06-30 11:15:00 Outpatient STEF BALDERAS AYSHA [id number] Aysha Husseinusha 2023-06-04 08:33:41 2023-06-04 08:33:41 Outpatient SFA [facility] [id number] Tigre Elise 2023-02-26 08:08:47 2023-02-26 08:08:47 Outpatient SFA [facility] [id number] Tigre Elise 2023-01-08 08:40:47 2023-01-08 08:40:47 Outpatient SFA SFA [id number] Tigre Elise 2022-12-04 09:21:35 2022-12-04 09:21:35 Outpatient SFA [facility] [id number] Tigre Elise 2022-11-12 15:57:37 2022-11-12 15:57:37 Outpatient SFA [facility] [id number] Tigre Elise Notes Date/Time Note Provider Source Tigre Elise [facility]
--- NOTE | 2024-12-25 23:20 | EDPHYS ---
Physician Documentation [facility] Name: Yousif Gordon Age: 39 yrs Sex: Male : 1985 Arrival Date: 12/25/2024 Time: 22:51 Bed 6 Private MD: ED Physician Rojelio Whitaker HPI: 12/25 23:24 This 39 yrs old Male presents to ER via Unassigned with complaints of sb4 Toothache, Pain. 23:24 The patient presents with broken tooth/teeth, pain, redness, swelling. The problem is sb4 located in the upper right second bicuspid. Onset: The symptoms/episode began/occurred 3 day(s) ago. Duration: The symptoms are continuous. Modifying factors: The symptoms are alleviated by nothing, the symptoms are aggravated by chewing, cold fluids, food. The patient has not experienced similar symptoms in the past. The patient has not recently seen a physician. Historical: - Allergies: 23:32 No Known Allergies; bm8 - Home Meds: 23:32 None [Active]; bm8 - PMHx: 23:32 Anxiety; bm8 - PSHx: 23:32 None; bm8 - Immunization history:: Adult Immunizations up to date. - Infectious Disease History:: Denies. - Social history:: Smoking status: Patient denies any tobacco usage or history of. ROS: 23:25 Constitutional: Negative for fever, chills, and weight loss, sb4 23:25 ENT: Positive for dental pain, 23:25 All other systems are negative, Exam: 23:25 Constitutional: This is a well developed, well nourished patient who is awake, alert, sb4 and in no acute distress. Head/Face: Normocephalic, atraumatic. Eyes: Extra-ocular motions intact. Periorbital areas with no swelling, redness, or edema. ENT: Mucous membranes moist. Cardiovascular: Regular rate and rhythm with a normal S1 and S2. Respiratory: No increased work of breathing, no retractions or nasal flaring. Skin: Warm, dry with normal turgor. Normal color with no rashes, no lesions, and no evidence of cellulitis. 23:25 ENT: Dental exam: fractured teeth are noted, specifically the upper right second bicuspid, gum swelling, that is moderate, Vital Signs: 23:14 BP 149 / 97; Pulse 89; Resp 17; Temp 98.2; Pulse Ox 98% ; Weight 74.39 kg; Height 5 ft. bm8 9 in. ; Pain 8/10; 23:34 BP 130 / 93; Pulse 94; Resp 17; Temp 98.2; Pulse Ox 95% ; Pain 6/10; bm8 23:14 Body Mass Index 24.22 (74.39 kg, 175.26 cm) bm8 23:14 Pain Scale: Adult bm8 23:34 Pain Scale: Adult bm8 Kelly Coma Score: 23:34 Eye Response: spontaneous(4). Motor Response: obeys commands(6). Verbal Response: bm8 oriented(5). Total: 15. MDM: 22:55 Medical Screening Exam initiated sb4 23:25 Data reviewed: vital signs, nurses notes, and as a result, I will discharge patient. sb4 Counseling: I had a detailed discussion with the patient and/or guardian regarding the historical points, exam findings, and any diagnostic results supporting the discharge/admit diagnosis, the need for outpatient follow up, a dentist, to return to the emergency department if symptoms worsen or persist or if there are any questions or concerns that arise at home. Administered Medications: 23:25 Drug: Amoxicillin-Clavulanate PO 875 mg PO once Route: PO; bm8 23:36 Follow up: Response: No adverse reaction bm8 23:25 Drug: Ketorolac IM 30 mg IM once Route: IM; Site: right deltoid; bm8 23:36 Follow up: Response: No adverse reaction 8 23:25 Drug: Hydrocodone-Acetaminophen PO (7.5 mg-325 mg) 1 tabs PO once Route: PO; bm8 23:36 Follow up: Response: No adverse reaction bm8 Disposition: 12/26 08:45 Co-signature as Attending Physician, Rojelio Whitaker MD I agree with the assessment and karlo plan of care. Disposition Summary: 12/25/24 23:19 Discharge Ordered Notes: Location: Home sb4 Problem: new sb4 Symptoms: have improved sb4 Condition: Stable sb4 Diagnosis - Dental caries, unspecified sb4 Followup: sb4 - With: Solis Pryor DDS - When: As needed - Reason: Recheck today's complaints, Re-evaluation by your physician Followup: sb4 - With: Jorge Poole DDS - When: As needed - Reason: Recheck today's complaints, Re-evaluation by your physician Discharge Instructions: - Discharge Summary Sheet sb4 - Dental Caries, Adult sb4 - Dental Pain, [id number] sb4 Forms: - Antibiotic Education sb4 - Patient Portal Instructions sb4 - Leadership Thank You Letter sb4 Prescriptions: - Amoxicillin 875 mg Oral Tablet - take 1 tablet ORAL route every 12 hours for 10 days; 20 tablet; Refills: 0, sb4 Product Selection Permitted - Ibuprofen 800 mg Oral Tablet - take 1 tablet ORAL route every 8 hours As needed take with food; 30 tablet; sb4 Refills: 0, Product Selection Permitted Signatures: Rojelio Whitaker MD MD cha Brown, Sophia PAHarmony PAChloéC sb4 William Rincon RN RN bm8
[2024-12-25] MEDS ORDERED: HYDROCODONE/APAP 7.5/325 MG TAB ONE (23:21)
[2024-12-25] MEDS ORDERED: AMOX/K CLAV 875 MG TAB ONE (23:21)
[2024-12-25] MEDS ORDERED: KETOROLAC 30 MG/ML INJ ONE (23:21)
--- NOTE | 2024-12-25 23:37 | ER ---
Nurse's Notes [facility] Name: Yousif Gordon Age: 39 yrs Sex: Male : 1985 Arrival Date: 12/25/2024 Time: 22:51 Bed 6 Private MD: Diagnosis: Dental caries, unspecified Presentation: 12/25 23:14 Chief complaint: Patient states: I have been having real bad tooth ache for three days. bm8 23:14 Coronavirus screen: At this time, the client does not indicate any symptoms associated bm8 with coronavirus-19. Ebola Screen: Patient negative for fever greater than or equal to 101.5 degrees Fahrenheit, and additional compatible Ebola Virus Disease symptoms Patient denies exposure to infectious person. Patient denies travel to an Ebola-affected area in the 21 days before illness onset. No symptoms or risks identified at this time. Initial Sepsis Screen: Does the patient meet any 2 criteria? No. Patient's initial sepsis screen is negative. Does the patient have a suspected source of infection? No. Patient's initial sepsis screen is negative. Risk Assessment: Do you want to hurt yourself or someone else? Patient reports no desire to harm self or others. Onset of symptoms was December 22, 2024 at 08:00. 23:14 Method Of Arrival: Ambulatory bm8 23:14 Acuity: SURYA 4 bm8 Triage Assessment: 23:14 General: Appears in no apparent distress. comfortable, Behavior is calm, cooperative, bm8 appropriate for age. Pain: Complains of pain in upper right second bicuspid Pain currently is 8 out of 10 on a pain scale. EENT: Oral mucosa is moist. Dental caries noted in upper right second bicuspid (#4) Reports pain in upper right second bicuspid Pain is 8 out of 10 on a pain scale. Denies. Neuro: No deficits noted. Level of Consciousness is awake, alert, obeys commands, Oriented to person, place, time, situation, Appropriate for age. Cardiovascular: Denies chest pain, Capillary refill < 3 seconds in bilateral fingers Patient's skin is warm and dry. Respiratory: Airway is patent Respiratory effort is even, unlabored, Respiratory pattern is regular, symmetrical, Breath sounds are clear bilaterally. GI: No signs and/or symptoms were reported involving the gastrointestinal system. : No signs and/or symptoms were reported regarding the genitourinary system. Derm: No signs and/or symptoms reported regarding the dermatologic system. Musculoskeletal: No signs and/or symptoms reported regarding the musculoskeletal system. Historical: - Allergies: 23:32 No Known Allergies; bm8 - Home Meds: 23:32 None [Active]; bm8 - PMHx: 23:32 Anxiety; bm8 - PSHx: 23:32 None; bm8 - Immunization history:: Adult Immunizations up to date. - Infectious Disease History:: Denies. - Social history:: Smoking status: Patient denies any tobacco usage or history of. Screenin:34 [facility] ED Fall Risk Assessment (Adult) History of falling in the last 3 months, bm8 including since admission No falls in past 3 months (0 pts) Confusion or Disorientation No (0 pts) Intoxicated or Sedated No (0 pts) Impaired Gait No (0 pts) Mobility Assist Device Used No (0 pt) Altered Elimination No (0 pt) Score/Fall Risk Level 0 - 2 = Low Risk Oriented to surroundings, Maintained a safe environment, Educated pt \T\ family on fall prevention, incl call for assistance when getting out of bed, Assessed \T\ reinforced patient's understanding of fall precautions, Hourly rounding (assess needs \T\ fall precautionary measures) done, Used ambulatory aids as needed (educated on \T\ assisted with), Used gait belt as appropriate. Abuse screen: Denies threats or abuse. Nutritional screening: No deficits noted. Tuberculosis screening: No symptoms or risk factors identified. Assessment: 23:34 Reassessment: Patient appears in no apparent distress at this time. Patient and/or bm8 family updated on plan of care and expected duration. Pain level reassessed. Patient is alert, oriented x 3, equal unlabored respirations, skin warm/dry/pink. Patient states feeling better. Vital Signs: 23:14 BP 149 / 97; Pulse 89; Resp 17; Temp 98.2; Pulse Ox 98% ; Weight 74.39 kg; Height 5 ft. bm8 9 in. ; Pain 8/10; 23:34 BP 130 / 93; Pulse 94; Resp 17; Temp 98.2; Pulse Ox 95% ; Pain 6/10; bm8 23:14 Body Mass Index 24.22 (74.39 kg, 175.26 cm) bm8 23:14 Pain Scale: Adult bm8 23:34 Pain Scale: Adult bm8 Quincy Coma Score: 23:34 Eye Response: spontaneous(4). Motor Response: obeys commands(6). Verbal Response: bm8 oriented(5). Total: 15. ED Course: 22:54 Patient arrived in ED. gm2 22:55 [facility]iannon Naylor [facility]-C [facility] sb4 22:55 Rojelio Whitaker MD is Attending Physician. sb4 23:14 Arm band placed on right wrist. bm8 23:19 Solis Pryor DDS is Referral Physician. sb4 23:19 Jorge Poole DDS is Referral Physician. sb4 23:20 William Rincon, RN is Primary Nurse. bm8 23:32 Triage completed. bm8 23:34 Patient has correct armband on for positive identification. Placed in gown. Bed in low bm8 position. Call light in reach. Side rails up X 1. Provided Education on: post er care. Client placed on continuous cardiac and pulse oximetry monitoring. NIBP monitoring applied. Pulse ox on. NIBP on. Door closed. Verbal reassurance given. Head of bed elevated. 23:34 No provider procedures requiring assistance completed. Patient did not have IV access bm8 during this emergency room visit. Patient maintains SpO2 saturation greater than 95% on room air. Administered Medications: 23:25 Drug: Amoxicillin-Clavulanate PO 875 mg PO once Route: PO; bm8 23:36 Follow up: Response: No adverse reaction bm8 23:25 Drug: Ketorolac IM 30 mg IM once Route: IM; Site: right deltoid; bm8 23:36 Follow up: Response: No adverse reaction bm8 23:25 Drug: Hydrocodone-Acetaminophen PO (7.5 mg-325 mg) 1 tabs PO once Route: PO; bm8 23:36 Follow up: Response: No adverse reaction bm8 Medication: 23:34 VIS not applicable for this client. bm8 Outcome: 23:19 Discharge ordered by . sb4 23:34 Discharged to home ambulatory, bm8 23:34 Condition: stable 23:34 Discharge instructions given to patient, Instructed on discharge instructions, follow up and referral plans. medication usage, Demonstrated understanding of instructions, follow-up care, medications, Prescriptions given X 2, 23:37 Patient left the ED. bm8 Signatures: Rhiannon Naylor PA-C PAHarmony sb4 Amelie Graham gm2 William Rincon, RN RN bm8
[2024-12-25 23:52] VITALS: TEMP 98.2
[2024-12-25 23:53] VITALS: BP 130/93; O2SAT 95
== END 2024-12-25 23:37 | disposition home or self-care (01) ==
LOC: ER 22:51
DX: K02.9 Dental caries, unspecified (principal)
CPT/HCPCS: 96372; 99284